=== PATIENT | female | born 1980 | race Two or more races ===

== ENCOUNTER 2016-06-16 07:57 | Emergency (ER) | payer SELFPAY ==
[2016-06-16 08:08] VITALS: TEMP 98.8; BMI 25.3
[2016-06-16] MEDS ORDERED: OXYCODONE HCL 5 MG TABLET PO ONE (08:28)
[2016-06-16] MEDS ORDERED: PREDNISONE 20 MG TAB PO ONE (08:28)
[2016-06-16] MEDS ORDERED: DIAZEPAM 2 MG TAB PO ONE (08:29)
--- NOTE | 2016-06-16 08:31 | EDPRACDOC ---
- General Information Chief Complaint: Back Pain Stated Complaint: LOWER BACK/ABD PAIN Time Seen by Provider: 06/16/16 08:28 Information Source: Patient Mode Of Arrival: Car Home Medications: Home Medications Diazepam [Valium] 5 mg PO TID #20 tablet 06/16/16 Oxycodone HCl/Acetaminophen [Percocet 5-325 mg Tablet] 1 each PO Q4 #20 tablet 06/16/16 Prednisone [Sterapred 10 mg/6 day pack] 21 tab PO DIR #1 pack 06/16/16 Allergies/Adverse Reactions: Allergies Allergy/AdvReac Type Severity Reaction Status Date / Time No Known Allergies Allergy Verified 06/16/16 08:09 - History of Present Illness Onset: 2 days HPI: PATIENT PRESENTS C/O SUDDEN LEFT FLANK PAIN THAT BEGAN 2 DAYS AGO. WORSE WITH MOVEMENT. DENIES TRAUMA OR FALL. STATES PAIN RADIATES DOWN LEFT LEG. HX OF MILD BACK PAIN CHRONICALLY IN THE PAST. NEVER THIS SEVERE IN THE PAST Pain Location: Reports: Left, Flank Pain Radiates To: Reports: Thigh, Buttock Pain Caused By: Reports: Spontaneous Relevant History: Reports: Chronic back pain Currently ?: No (PROVERA IMPLANT) Pain Severity: Reports: Moderate Pain Quality: Reports: Aching Worsened By: Reports: Movement Associated Signs and Symptoms: Reports: None ED Past Medical History - History Reviewed Yes Nurses notes reviewed and agree except as marked Travel Outside of [place] in the Last 3 Months?: No - Patient Medical History Systemic History: Denies: Cancer Surgical History: Reports: No Significant History - Family Medical History Reports: Diabetes (pgf) - Social Medical History ETOH: None Substance Abuse: None Lives With: Family Lives In: Home EDM Review of Systems - Review of Systems ROS Negative Except as Marked: Yes All systems reviewed and were negative except as marked Constitutional: No Symptoms Reported. negative: Fever, Chills, Weakness, Fatigue, Loss of Appetite Eyes: No Symptoms Reported. negative: Redness, Blurred Vision, Double Vision, Discharge, Pain, Light Sensitive, Photophobia Ears: No Symptoms Reported. negative: Pain, Hearing Loss, Drainage, Ear Pulling Throat: No Symptoms Reported. negative: Pain, Swelling Nose: No Symptoms Reported. negative: Congestion, Bleeding, Discharge, Injection, Swelling, Deformity, Ecchymosis, Tender, Abrasion, Laceration Mouth: No Symptoms Reported. negative: Pain, Drooling Respiratory: No Symptoms Reported. negative: Cough, Brassy Cough, Barky Cough, Shortness of Breath, Wheezing, Hemoptysis Cardiovascular: No Symptoms Reported. negative: Chest Pain, Palpitations, Syncope, Edema, Orthopnea, PND, Skin Mottling, Cyanosis Gastrointestinal: No Symptoms Reported. negative: Pain, Constipation, Nausea, Vomiting, Diarrhea, Melena, Formula Intolerance Genitourinary: No Symptoms Reported. negative: Dysuria, Hematuria, Frequency, Discharge, Bleeding, Testicular Pain, Neurological: No Symptoms Reported. negative: Headache, Dizziness, Seizure, Numbness, Weakness, Speech Difficulty, Gait Difficulty Musculoskeletal: Back. negative: Arm, Ankle, Chestwall, Elbow, Forearm, Femur, Foot, Hand, Hip, Knee, Leg, Neck, Pelvis, Ribs, Shoulder, Wrist Integumentary: No Symptoms Reported. negative: Itching, Rash, Bruising, Wound Allergic/Immunologic: No Symptoms Reported. negative: Hives, Itching Hematologic: No Symptoms Reported. negative: Lymphadenopathy, Easy Bruising, Easy Bleeding Endocrine: No Symptoms Reported. negative: Weight Gain, Weight Loss Psychiatric: No Symptoms Reported. negative: Anxiety, Depression, Hallucinations, Insomnia, Suicidal - Physical Exam Constitutional: Alert (Awake), Distress (MODERATE) Oriented to: Time, Person, Place Last recorded Vital Signs: Last Vital Signs Temp 98.8 F 06/16/16 08:05 Pulse 93 06/16/16 08:05 Resp 20 06/16/16 08:05 BP 125/67 06/16/16 08:05 Pulse Ox 99 06/16/16 08:05 Oxygen Pulse Oxygen Saturation 99 O2 Device Room Air Oxygen Flow Rate Fraction of Inspired Oxygen ( FIO2) - HEENT Head: Normal ( normocephalic) Eye Exam: Normal (PERRL, EOMI, Sclera white) Oropharynx: Normal (Pharynx:Moist without exudate,Gums-no swelling) Tympanic Membrane: Normal ENT EAC: Normal TMJ: Normal Nose: No Symptoms Reported (septum midline) Neck: Normal (FROM, trachea at midline) - Respiratory/Cardiovascular Respiratory: Normal - CTA (BBS clear to auscultation without adventitious sounds ) Cardiovascular: Normal (RRR without murmur, gallop or rub) - GI Auscultation: Normal (NABS) Palpation: Normal (Soft,No rebound or guarding, non distended) Tenderness: Non tender Prabhakar's Sign: Negative - Musculoskeletal Back: Other Extremities: Normal (Normal tone, Pulses 2+ No cyanosis or edema, FROM) - Integumentary Skin: Normal, Warm, Dry Lymphatics: Normal (no adenopathy) - Neurologic Memory Impaired: Normal Motor Function: Normal (Normal tone, Pulses 2+ No cyanosis or edema, FROM) Cranial Nerve: Normal (CN II-X11 intact sensation, strength 5/5) Cerebellar: Normal Mood Description: Normal Perception: Normal ED Back Exam - Neurologic Motor Deficit: None Reflexes: Normal - Musculoskeletal Cervical: Normal Thoracic: Normal Lumbar: Tender, Spasm Midline: Normal Paraspinous: Tender, Spasm Straight Leg Raise: Negative Pelvis: Normal Decision Time to Discharge: 09:22 - Departure Yes I personally saw and evaluated the patient. Disposition: Home Condition: Good Final Diagnosis: Lumbar radiculopathy, acute Low back pain Qualifiers: Chronicity: acute Back pain laterality: left Sciatica presence: with sciatica Sciatica laterality: sciatica of left side Qualified Code(s): M54.42 - Lumbago with sciatica, left side Instructions: Core Strengthening Exercises (GEN), Back Pain, Acute Low Back Pain (ED) Education/Counseling Given To: Patient Education/Counseling Given Regarding: Diagnosis, Treatment, Prognosis, Follow Up Referrals: None,No Provider [Primary Care Provider] - One Week Art Howard MD [Staff Physician] - One Week Prescriptions: Diazepam [Valium] 5 mg PO TID #20 tablet Oxycodone HCl/Acetaminophen [Percocet 5-325 mg Tablet] 1 each PO Q4 #20 tablet Prednisone [Sterapred 10 mg/6 day pack] 21 tab PO DIR #1 pack
--- NOTE | 2016-06-16 09:05 | DIRPT ---
CLINICAL DATA: Right and left-sided back and flank pain. EXAM: CT ABDOMEN AND PELVIS WITHOUT CONTRAST TECHNIQUE: Multidetector CT imaging of the abdomen and pelvis was performed following the standard protocol without IV contrast. COMPARISON: None. FINDINGS: Lower chest and abdominal wall: No contributory findings. Hepatobiliary: No focal liver abnormality.No evidence of biliary obstruction or stone. Pancreas: Unremarkable. Spleen: Unremarkable. Adrenals/Urinary Tract: Negative adrenals. 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 No hydronephrosis, stone, or inflammatory features. Reproductive:No pathologic findings. Stomach/Bowel: Small linear presumably ingested structure in the right colon without bowel wall thickening, considered incidental based on location and small size. Vascular/Lymphatic: No acute vascular abnormality. No mass or adenopathy. Peritoneal: Trace pelvic fluid, usually physiologic. Musculoskeletal: A few corners of the lumbar vertebrae have a sclerotic appearance but no bridging syndesmophytes or sacroiliitis. Given recent onset of back pain (reportedly 2 days) this is likely incidental early spondylosis. No explanation for report of right leg symptoms. IMPRESSION: No acute finding. No hydronephrosis or urolithiasis. Electronically Signed By: Yordy Patton M.D. On: 06/16/2016 09:02
[2016-06-16 10:24] VITALS: BP 118/65; PULSE 89
== END 2016-06-16 10:23 | disposition home or self-care (01) ==
LOC: ED 07:57
DX: M54.42 Lumbago with sciatica, left side (principal); M54.16 Radiculopathy, lumbar region; R10.9 Unspecified abdominal pain
CPT/HCPCS: 74176; 99283; J3490